=== PATIENT | male | born 1980 | race Two or more races ===

== ENCOUNTER 2022-02-27 21:45 | Emergency (ER) | payer MEDICAID ==
[~2022-02-27] VITALS: Ht 170.2 cm; Wt 98.6 kg
[2022-02-27] MEDS ORDERED: SODIUM CHLORIDE 0.9% 1,000 ML IV ONE (23:00)
[2022-02-27 23:30] LABS: Basophils # (auto) 0 10 ^3/uL (0-0.2); Basophils % (auto) 0.2 % (0.0-2.0); Eosinophils # (auto) 0.4 10 ^3/uL (0-0.8); Eosinophils % (auto) 3.2 % (0.0-7.0); Hematocrit 53.2 % (41.0-53.0); Hemoglobin 17.8 g/dL (13.5-17.5); Lymphocytes # (auto) 0.4 10 ^3/uL (0.4-5.4); Lymphocytes % (auto) 3.7 % (10.0-50.0); Mean Corpuscular Hemoglobin 28.5 pg (28.0-32.0); Mean Corpuscular Hgb Conc. 33.4 g/dL (32.0-36.0); Mean Corpuscular Volume 85.2 fL (80.0-100.0); Monocytes # (auto) 0.7 10 ^3/uL (0-1.3); Neutrophils # (auto) 9.6 10 ^3/uL (1.6-8.6); Neutrophils % (auto) 86.9 % (37.0-80.0); Nucleated Red Blood Cells % 0.1 %; Red Blood Cells 6.25 10^6/uL (4.5-5.90); White Blood Cell 11.1 10^3/uL (4.4-10.8)
[2022-02-27 23:39] LABS: Urine Bacteria NONE SEEN /hpf (None Seen); Urine Blood Negative /uL (Negative); Urine Hyaline Cast MOD /lpf (0 - 2); Urine Mucus FEW (None Seen); Urine Specific Gravity 1.033 (1.001-1.035); Urine WBC 1 /hpf (0 - 3)
[2022-02-27 23:49] LABS: Albumin 4.3 g/dL (3.4-5.0); Anion Gap 10 (5-15); Blood Urea Nitrogen 29 mg/dL (7-18); Carbon Dioxide 22 mmol/L (21-32); Chloride 105 mmol/L (98-107); Glucose 386 mg/dL (74-106); Magnesium 1.8 mg/dL (1.6-2.6); Potassium 3.9 mmol/L (3.5-5.1); Sodium 137 mmol/L (136-145)
[2022-02-27 23:50] LABS: Amphetamine Screen, Urine NEGATIVE (NEGATIVE); Barbiturate Scree,Urine NEGATIVE (NEGATIVE); Benzodiazephine Screen, Urine NEGATIVE (NEGATIVE); Cannabinoid Screen, Urine NEGATIVE (NEGATIVE); Cocaine Screen, Urine NEGATIVE (NEGATIVE); Opiate Scree,Urine NEGATIVE (NEGATIVE); Phencyclidine Screen, Urine NEGATIVE (NEGATIVE)
[2022-02-27 23:51] LABS: Alanine Aminotransferase 20 U/L (16-61); Aspartate Aminotransferase 13 U/L (15-37); BUN/Creatinine Ratio 24.4; Blood Alcohol < 3.0 mg/dL (0-5); GFR African American 86 mL/min; GFR Non-African American 71 mL/min
[2022-02-27 23:54] LABS: Alkaline Phosphatase 143 U/L (45-117); Bilirubin, Total 0.7 mg/dL (0.2-1.0); Creatine Kinase IFCC 84 U/L (39-308)
[2022-02-28] MEDS ORDERED: MECLIZINE HCL 25 MG TAB PO ONE (04:30)
[2022-02-28] MEDS ORDERED: ONDA-144 PO (05:44)
[2022-02-28 05:50] VITALS: BP 100/67
== END 2022-02-28 05:53 | disposition home or self-care (01) ==
LOC: ER 21:45
DX: R73.9 Hyperglycemia, unspecified (principal); R11.2 Nausea with vomiting, unspecified; R19.7 Diarrhea, unspecified; R42 Dizziness and giddiness; Z20.822 Contact with and (suspected) exposure to COVID-19
CPT/HCPCS: 36415; 80053; 80307; 80320; 81001; 82550; 83605; 83735; 84484; 85025; 87426; 93005; 96360; 99284; J7030; J8597

== ENCOUNTER 2023-12-28 12:10 | Emergency (ER) | payer MEDICAID ==
[~2023-12-28] VITALS: Ht 175.3 cm; Wt 97.4 kg
[~2023-12-28 12:10] MED LIST: ONDA-144 PO
[2023-12-28 13:06] LABS: Basophils # (auto) 0.1 10 ^3/uL (0-0.2); Basophils % (auto) 0.7 % (0.0-2.0); Eosinophils # (auto) 0.6 10 ^3/uL (0-0.8); Eosinophils % (auto) 6.7 % (0.0-7.0); Hematocrit 45.2 % (41.0-53.0); Lymphocytes # (auto) 1.4 10 ^3/uL (0.4-5.4); Lymphocytes % (auto) 17.2 % (10.0-50.0); Mean Corpuscular Hemoglobin 30.5 pg (28.0-32.0); Mean Corpuscular Hgb Conc. 35.5 g/dL (32.0-36.0); Mean Corpuscular Volume 85.9 fL (80.0-100.0); Monocytes # (auto) 0.5 10 ^3/uL (0-1.3); Monocytes % (auto) 6.1 % (0.0-12.0); Neutrophils # (auto) 5.8 10 ^3/uL (1.6-8.6); Neutrophils % (auto) 69.3 % (37.0-80.0); Nucleated Red Blood Cells % 0.1 %; Red Blood Cells 5.26 10^6/uL (4.5-5.90); Red Cell Distribution Width 13.1 % (11.8-14.3); White Blood Cell 8.3 10^3/uL (4.4-10.8)
[2023-12-28 13:27] LABS: Anion Gap 7 (5-15); Carbon Dioxide 23 mmol/L (20-30); Chloride 103 mmol/L (98-107); Potassium 4.2 mmol/L (3.5-5.1); Sodium 133 mmol/L (136-145)
[2023-12-28 13:28] LABS: Calcium 9.4 mg/dL (8.7-10.4)
[2023-12-28 13:31] VITALS: BP 108/72; TEMP 98.2
[2023-12-28 13:33] LABS: BUN/Creatinine Ratio 16.7 (10.0-20.0); Blood Urea Nitrogen 18 mg/dL (9-23)
[2023-12-28 13:38] LABS: Glucose 441 mg/dL (74-106)
[2023-12-28] MEDS: SODIUM CHLORIDE 0.9% 1,000 ML IV ONE (14:36)
[2023-12-28] MEDS: InsuLIN REG 1unit/0.01ml Soln (100units/ml) IV ONE (14:36)
[2023-12-28] MEDS: PIPERACILLIN-TAZOB 3.375GM 100 ML IV ONE (14:39)
[2023-12-28 15:26] VITALS: PULSE 85; RESP 16; O2SAT 98
[2023-12-28] MEDS ORDERED: AMOX500T3 PO (15:45)
[2023-12-28] MEDS ORDERED: CLIN1CAP70 PO (15:45)
[2023-12-28 15:56] LABS: Urine Bacteria None Seen /hpf (None Seen)
[2023-12-28 16:04] LABS: Urine Blood Negative /uL (Negative); Urine Clarity Clear (Clear); Urine Color Light-Yellow (Yellow); Urine Mucus FEW (None Seen); Urine Protein, UAD Negative (Negative); Urine Urobilinogen Normal (Negative); Urine WBC <1 /hpf (0 - 3); Urine pH 5.5 (5.0-9.0)
== END 2023-12-28 16:34 | disposition home or self-care (01) ==
LOC: ER 12:12
DX: L03.116 Cellulitis of left lower limb (principal); R73.9 Hyperglycemia, unspecified; Z79.899 Other long term (current) drug therapy
CPT/HCPCS: 36415; 80048; 81001; 82962; 83605; 85025; 87040; 96365; 96375; 99284; J1815; J2543